=== PATIENT | female | born 1980 | race Caucasian/White ===

== ENCOUNTER → 2017-11-20 | Outpatient (CLI) | payer OTHER ==
[~2017-11-20] MED LIST: BUPIVACAINE 0.5% 30 ML SDV ONE; LIDOCAINE 1% 300 MG/30 ML SDV ONE; THROMBIN (BOVINE) 5,000 UNIT VIAL TP ONE
== END ==
LOC: FIMAGING 07:28
PROVIDERS: ATTEND Internal Medicine
PROC: BH40ZZZ Ultrasonography of Right Breast (ICD-10-PCS; principal; 2017-11-20)
PROC: 0HBT3ZX Excision of Right Breast, Percutaneous Approach, Diagnostic (ICD-10-PCS; principal; 2017-11-20)
DX: D24.1 Benign neoplasm of right breast (principal)

== ENCOUNTER → 2018-06-01 | Outpatient (CLI) | payer OTHER | LOC: FIMAGING 10:49 | PROVIDERS: ATTEND Internal Medicine | DX: Z09 Encounter for follow-up examination after completed treatment for conditions other than malignant neoplasm (principal); Z86.018 Personal history of other benign neoplasm ==